=== PATIENT | male | born 2000 | race Two or more races ===

== ENCOUNTER 2023-01-03 19:24 | Inpatient (IN) ==
--- NOTE | 2023-01-03 19:35 | Emergency Department Note ---
Impression & Plan Intentional acetaminophen overdose, Ibuprofen overdose, Suicide attempt by multiple drug overdose ED Provider Note NAME: SEAN WASHINGTON AGE: 22 SEX: M : 2000 ARRIVES VIA: Walk-In INFORMANT: Patient, ED PROVIDER(S): Ignacio Herrera MD CHIEF COMPLAINT: Intentional Tylenol overdose MEDICAL DECISION MAKING: Patient presents due to concern for possible ingestion of Tylenol. IV was established blood work was obtained along with congestion UDS. Did speak with poison [facility] and spoke with Jeannine. After further discussion she is agreeable to starting Acetadote empirically given the patient's reported amount of Tylenol ingested. The patient's blood counts show normal white count H&H and platelet count with normal kidney function. The patient's LFTs and coags are unremarkable. Tylenol level 17 with negative salicylate and alcohol. UDS negative. I did reach back out to poison control who recommended to continue the Acetadote as the patient did have a toxic level based on postingestion. This was ordered. I also recommended getting a repeat coags and liver function testing at 12 hours into the second maintenance dose. I did speak with the on-call hospital service Dr. Romero and the patient was admitted to the medicine service. Critical Care: I have personally spent 47 minutes of critical care time in direct management of this patient. This includes bedside care, interpretation of diagnostic studies, and testing, discussion with consultants, patient, and family members, and other require inpatient management activities. This 47 minutes is in excess of all separately billable procedures. Prior /Outside records reviewed: None Differential diagnosis: Overdose, toxicologic, infection, hypoglycemia, electrolyte abnormalities, cardiac sources, intracerebral event, neurologic, trauma, as well as other pathologies. Diagnostics, as interpreted by me: ECG: Sinus rhythm, rate of 89 normal intervals normal axis no ST elevations. No prior EKGs for comparison. Cardiac monitoring: An order was placed for continuous cardiac monitoring. The monitor shows a rate of 77 with sinus rhythm. Patient was placed on pulse oximetry Medical decision rules: None Imaging studies: See below HPI: Patient presents due to concern for possible Tylenol ingestion overdose. The patient states around 430 this morning he took approximately 40 to 5300 mg Tylenol tablets in addition to ten 200 mg Motrin tablets. Patient states that he did vomit around 7. He complains of mild abdominal discomfort. Patient denies any HI or AVH and is unsure as whether or not he took it with the intent to harm himself. Patient denies any prior history of depression or anxiety. T he patient does not take any medications on a regular basis no pertinent past medical or surgical history. Patient denies any alcohol or drug use but does occasionally use tobacco. Patient states that he feels safe at home and is with 3 other roommates. 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 Patient states he has had increased sleep and decreased appetite. PAST MEDICAL HISTORY: See Below PAST SURGICAL HISTORY: See Below SOCIAL HISTORY: See Below HOME MEDICATIONS: See Below ALLERGIES: See Below VITALS: See Below PHYSICAL EXAMINATION: GENERAL: NAD, non-toxic. EYE EXAM: Normal conjunctiva. PERRL, no anisocoria and EOM's grossly intact w/o pain. NECK: Supple, no nuchal rigidity, no adenopathy, non-tender. No signs of meningismus. FROM of the neck with good chin to chest and neck extension. No stridor. LUNGS: Clear to auscultation. Normal chest wall mechanics. HEART: NSR, no MRG. ABDOMEN: Abdomen soft, non-tender, no masses, no rebound or guarding. BACK: No CVA TTP. SKIN: No rashes and no bruising. UPPER EXTREMITIES: Upper extremities are grossly normal. LOWER EXTREMITIES: Grossly normal, no edema. NEURO EXAM: A&O x3, cranial nerves II-XII grossly intact, normal speech, moves all 4 extremities. Psych: Questionable SI, negative HI or AVH. Depressed mood Past Med/Surg History Medical History No pertinent past medical history Surgical History No pertinent past surgical history Social History Smoking Status: Current some day smoker Cigarettes Per Day: smokes occasionaly; Second Hand Exposure: No; Do You Dip or Chew Tobacco: No; Hx Alcohol Use: No Hx Substance Use: No Preferred Language: Yakut Communication Ability: Effective Design Assembler Required: No Beliefs That Will Affect Care: None Current Living Situation: Alone Current Living Situation Comment: student housing current occupational status: student Feels Safe at Home: Yes Assistive Devices: None Allergies Allergies Allergy/AdvReac Type Severity Reaction Status Date / Time No Known Drug Allergies Allergy Unknown Verified 01/03/23 21:28 Home Meds Home Medications Medication Instructions Recorded Confirmed No Known Home Medications 01/03/23 01/03/23 Results & Data (ED) Vital Signs Vital Signs - 24 hr 01/03/23 19:27 01/03/23 19:58 01/03/23 20:01 Temperature 36.5 C Temperature Source Temporal Artery Scan Pulse Rate 107 H Pulse Rate [Apical] 96 H Respiratory Rate 18 20 Respiratory Effort / Characteristics Non-Labored Spontaneous Non-Labored Spontaneous Respiratory Depth Normal Normal Normal Respiratory Pattern Regular Regular Blood Pressure 132/84 Blood Pressure [Right Arm] 134/85 Blood Pressure Mean 100 Blood Pressure Mean [Right Arm] 101 Pulse Oximetry 97 97 Oxygen Delivery Method Room Air Room Air Sepsis Recent Fever Within 48 Hours No Sepsis New/Unexplained Change in Mental Status N/A Sepsis Action Taken by Nursing No Action Required 01/03/23 19:56 Temperature Temperature Source Pulse Rate 93 H Pulse Rate [Apical] Respiratory Rate Respiratory Effort / Characteristics Respiratory Depth Respiratory Pattern Blood Pressure Blood Pressure [Right Arm] Blood Pressure Mean Blood Pressure Mean [Right Arm] Pulse Oximetry Oxygen Delivery Method Sepsis Recent Fever Within 48 Hours Sepsis New/Unexplained Change in Mental Status Sepsis Action Taken by Long-Term Medications Current Medication List: was personally reviewed by me Laboratory Data Attestation: I reviewed the patient's lab results. 01/04/23 05:42 01/04/23 05:42 Lab Results 01/03/23 01/03/23 01/03/23 Range/Units 19:39 19:39 19:39 WBC 9.15 (4.8-10.8) K/ul RBC 5.66 (4.70-6.10) M/uL Hgb 16.9 (14.0-18.0) g/dl Hct 47.9 (42.0-52.0) % MCV 84.6 (80.0-100.0) fL MCH 29.9 (25.0-34.0) pg MCHC 35.3 (32.0-36.0) g/dL RDW Std Deviation 38.8 (36.4-46.3) fL RDW Coeff of Alexander 12.6 (11.5-14.5) % Plt Count 220 (130-400) K/uL MPV 10.6 (9.4-12.4) fL Immature Gran % (Auto) 0.3 % Neut % (Auto) 65.7 % Lymph % (Auto) 21.6 % Rusk % (Auto) 11.9 % Eos % (Auto) 0.0 % Baso % (Auto) 0.5 % Neut # (Auto) 6.00 (1.40-6.50) K/uL Lymph # (Auto) 1.98 (1.2-3.4) K/uL Rusk # (Auto) 1.09 H (0.11-0.59) K/uL Eos # (Auto) 0.00 (0-0.50) K/uL Baso # (Auto) 0.05 (0-0.2) K/uL Immature Gran # (Auto) 0.03 (0.01-0.20) K/uL PT (9.0-12.0) Seconds INR (0.9-1.1) APTT (21.0-31.0) Seconds PTT Ratio Sodium (136-145) mmol/L Potassium (3.5-5.1) mmol/L Chloride (98-107) mmol/L Carbon Dioxide (21-32) mmol/L Anion Gap (3-11) BUN (6-23) mg/dl Creatinine (0.6-1.4) mg/dl Est Cr Clr Drug Dosing ml/min Est GFR ( Amer) ml/min Est GFR (Non-Af Amer) ml/min BUN/Creatinine Ratio (10-20) Glucose (70-99(Fasting)) mg/dl Calcium (8.6-10.3) mg/dl Total Bilirubin (0.2-1.0) mg/dl AST (13-39) U/L ALT (7-52) U/L Alkaline Phosphatase (34-104) U/L Total Protein (6.0-8.3) gm/dl Albumin (3.4-5.0) gm/dl Globulin (2.5-4.0) gm/dl Albumin/Globulin Ratio (0.9-2) Salicylates < 3.0 L (3.0-30) mg/dl Urine Opiates Screen (Neg) Ur Methadone, Qual (Neg) Acetaminophen 17 (10-30) ug/ml Urine Barbiturates (Neg) Ur Phencyclidine (PCP) (Neg) U Amphetamin/Meth Scrn (Neg) MDMA (Ecstasy) Screen (Neg) U Benzodiazepines Scrn (Neg) Ur Cocaine Metabolite (Neg) U Marijuana (THC) Screen (Neg) Ethyl Alcohol mg/dL < 10.0 (<10.0) mg/dl 01/03/23 01/03/23 01/03/23 Range/Units 19:39 19:58 20:09 WBC (4.8-10.8) K/ul RBC (4.70-6.10) M/uL Hgb (14.0-18.0) g/dl Hct (42.0-52.0) % MCV (80.0-100.0) fL MCH (25.0-34.0) pg MCHC (32.0-36.0) g/dL RDW Std Deviation (36.4-46.3) fL RDW Coeff of Alexander (11.5-14.5) % Plt Count (130-400) K/uL MPV (9.4-12.4) fL Immature Gran % (Auto) % Neut % (Auto) % Lymph % (Auto) % Rusk % (Auto) % Eos % (Auto) % Baso % (Auto) % Neut # (Auto) (1.40-6.50) K/uL Lymph # (Auto) (1.2-3.4) K/uL Rusk # (Auto) (0.11-0.59) K/uL Eos # (Auto) (0-0.50) K/uL Baso # (Auto) (0-0.2) K/uL Immature Gran # (Auto) (0.01-0.20) K/uL PT 11.4 (9.0-12.0) Seconds INR 1.0 (0.9-1.1) APTT 30.7 (21.0-31.0) Seconds PTT Ratio 1.1 Sodium 141 (136-145) mmol/L Potassium 3.6 (3.5-5.1) mmol/L Chloride 107 (98-107) mmol/L Carbon Dioxide 20 L (21-32) mmol/L Anion Gap 14 H (3-11) BUN 12 (6-23) mg/dl Creatinine 1.07 (0.6-1.4) mg/dl Est Cr Clr Drug Dosing 141.2 ml/min Est GFR ( Amer) 112.0 ml/min Est GFR (Non-Af Amer) 96.6 ml/min BUN/Creatinine Ratio 11.2 (10-20) Glucose 71 (70-99(Fasting)) mg/dl Calcium 9.5 (8.6-10.3) mg/dl Total Bilirubin 0.9 (0.2-1.0) mg/dl AST 19 (13-39) U/L ALT 18 (7-52) U/L Alkaline Phosphatase 64 (34-104) U/L Total Protein 8.0 (6.0-8.3) gm/dl Albumin 4.7 (3.4-5.0) gm/dl Globulin 3.3 (2.5-4.0) gm/dl Albumin/Globulin Ratio 1.4 (0.9-2) Salicylates (3.0-30) mg/dl Urine Opiates Screen Neg (Neg) Ur Methadone, Qual Neg (Neg) Acetaminophen (10-30) ug/ml Urine Barbiturates Neg (Neg) Ur Phencyclidine (PCP) Neg (Neg) U Amphetamin/Meth Scrn Neg (Neg) MDMA (Ecstasy) Screen Neg (Neg) U Benzodiazepines Scrn Neg (Neg) Ur Cocaine Metabolite Neg (Neg) U Marijuana (THC) Screen Neg (Neg) Ethyl Alcohol mg/dL (<10.0) mg/dl Administered Medications Acetylcysteine 9,190 mg/ (Dextrose) 1,045.95 mls @ 62.5 mls/hr IV 0430 ONE; Protocol Stop: 01/04/23 21:14 Last Admin: 01/04/23 04:27 Dose: 62.5 mls/hr Documented By: NVE Discontinued Medications Acetylcysteine 14,070 mg/ (Dextrose) 270.35 mls @ 200 mls/hr IV NOW ONE; Protocol Stop: 01/03/23 21:51 Last Infusion: 01/03/23 22:50 Dose: 0 mls/hr Documented By: Admin: 01/03/23 21:24 Dose: 200 mls/hr Documented By: MED Acetylcysteine 4,690 mg/ (Dextrose) 523.45 mls @ 125 mls/hr IV 2300 ONE; Protocol Stop: 01/04/23 03:11 Last Infusion: 01/04/23 03:19 Dose: 0 mls/hr Documented By: Admin: 01/03/23 22:58 Dose: 125 mls/hr Documented By: ELINOR Miscellaneous Information (Patient's Allergy Info Needs Entered) 1 each N/A Q15M [facility] Stop: 02/02/23 20:34 Last Admin: 01/04/23 05:48 Dose: Not Given Documented By: Admin: 01/04/23 05:48 Dose: Not Given Documented By: Admin: 01/04/23 05:48 Dose: Not Given Documented By: Admin: 01/04/23 05:48 Dose: Not Given Documented By: Admin: 01/04/23 05:48 Dose: Not Given Documented By: Admin: 01/04/23 05:47 Dose: Not Given Documented By: Admin: 01/04/23 05:47 Dose: Not Given Documented By: Admin: 01/03/23 23:28 Dose: 1 each Documented By: Admin: 01/03/23 21:27 Dose: 1 each Documented By: MED Ondansetron HCl (Ondansetron Inj 2 Mg/Ml 2 Ml Vial) 4 mg IV NOW STA Stop: 01/03/23 23:02 Last Admin: 01/03/23 23:19 Dose: 4 mg Documented By: ELINOR Discharge Plan Visit Data Chief Complaint: Overdose (Intentional) Stated Complaint: INTENTION OVERDOSE ACETAMINOPHEN ED Provider: Ignacio Herrera Discharge Problem: Intentional acetaminophen overdose, Ibuprofen overdose, Suicide attempt by multiple drug overdose Patient Disposition: Admitted As Inpatient Discharge Instructions Interventions: ED Discharge Assessment Last Done: 01/04/23 01:29
[2023-01-03] MEDS ORDERED: DEXTROSE 5% IV ONE ×4 (19:56→23:00)
[2023-01-03] MEDS ORDERED: ACETYLCYSTEINE IV ONE ×4 (19:56→23:00)
[2023-01-03 20:28] LABS: Acetaminophen 17 ug/ml (10-30); Salicylate < 3.0 mg/dl (3.0-30)
[2023-01-03 20:32] LABS: Albumin Globulin Ratio 1.4 (0.9-2); Albumin Level 4.7 gm/dl (3.4-5.0); BUN Creatinine Ratio 11.2 (10-20); Bilirubin,Total 0.9 mg/dl (0.2-1.0); Calcium 9.5 mg/dl (8.6-10.3); Creatinine Clr Calc Pharmacy 141.2 ml/min; Est GFR (Non-African American) 96.6 ml/min; Globulin 3.3 gm/dl (2.5-4.0); Potassium 3.6 mmol/L (3.5-5.1)
[2023-01-03 20:38] LABS: Basophils # (auto) 0.05 K/uL (0-0.2); Basophils % (auto) 0.5 %; Hematocrit (blood only) 47.9 % (42.0-52.0); Hemoglobin 16.9 g/dl (14.0-18.0); Immature Granulocytes # (auto) 0.03 K/uL (0.01-0.20); Immature Granulocytes % (auto) 0.3 %; Lymphocytes # (auto) 1.98 K/uL (1.2-3.4); Lymphocytes % (auto) 21.6 %; Mean Corpuscular Hemoglobin 29.9 pg (25.0-34.0); Mean Corpuscular Hgb Conc 35.3 g/dL (32.0-36.0); Mean Corpuscular Volume 84.6 fL (80.0-100.0); Mean Platelet Volume 10.6 fL (9.4-12.4); Monocytes # (auto) 1.09 K/uL (0.11-0.59); Monocytes % (auto) 11.9 %; Neutrophils % (auto) 65.7 %; Platelet Count 220 K/uL (130-400); RDW Coefficient of Variation 12.6 % (11.5-14.5); RDW Standard Deviation 38.8 fL (36.4-46.3); Red Blood Count 5.66 M/uL (4.70-6.10); White Blood Count 9.15 K/ul (4.8-10.8)
[2023-01-03 20:52] LABS: Amphetamines+Metham, Urine Neg (Neg); Barbiturates, Urine Neg (Neg); Benzodiazepine, Urine Neg (Neg); Cocaine, Urine Neg (Neg); MDMA (Ecstacy), Urine Neg (Neg); Methadone, Urine Neg (Neg); Opiate, Urine Neg (Neg); Phencyclidine, Urine Neg (Neg)
[2023-01-03 21:01] LABS: Partial Thromboplastin Ratio 1.1; Partial Thromboplastin Time 30.7 Seconds (21.0-31.0); Prothrombin Time 11.4 Seconds (9.0-12.0)
[2023-01-03] MEDS: Patient's ALLERGY Info needs ENTERED SCH ×2 (21:27→23:28)
[2023-01-03] MEDS ORDERED: ONDANSETRON INJ 2 MG/ML 2 ML VIAL IV STA (23:01)
--- NOTE | 2023-01-04 01:24 | History & Physical Report ---
Date of Service January 04, 2023 The patient was seen and examined on 01/03/2023 Assessment & Plan (1) Intentional acetaminophen overdose: (2) Ibuprofen overdose: Plan Intentional acetaminophen and ibuprofen overdose- Patient will be admitted to the telemetry unit Continue acetylcysteine per protocol begun in the ED Consult psychiatry Suicide precautions One-on-one observation Repeat CBC with differential, chemistry profile, acetaminophen, PT/INR/PTT levels in a.m. History of Present Illness Chief Complaint: The patient presents to the emergency department due to an intentional over ingestion of Tylenol at 4:30 AM, reported that he took approximately 40-50 of 300 mg Tylenol tablets in addition to ten 200 mg Motrin tablets. He reports that he vomited around 7 AM, and had some mild abdominal discomfort since that time. 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 The emergency department has contacted poison control, who recommends that the patient be admitted and placed on acetylcysteine prophylaxis per protocol Allergies Allergy/AdvReac Type Severity Reaction Status Date / Time No Known Drug Allergies Allergy Unknown Verified 01/03/23 21:28 Home Medications Medication Instructions Recorded Confirmed Type No Known Home Medications 01/03/23 01/03/23 History Past Med/Surg History Medical History No pertinent past medical history Surgical History No pertinent past surgical history Social History Smoking Status: Current some day smoker Hx Alcohol Use: No Hx Substance Use: No Preferred Language: Andorran current occupational status: student Feels Safe at Home: Yes Review of Systems Review of Systems: The patient denies chest pain, palpitations, shortness of breath, dyspnea on exertion, cough, lower extremity swelling, sore throat, fevers, chills, sweats, diarrhea , constipation, blood in urine or stool, dysuria, urinary frequency or urgency, lightheadedness, dizziness, headache, memory loss, loss of consciousness, rash, abnormal bruising or bleeding, imbalance, focal or generalized weakness, numbness or tingling in arms or legs, generalized arthralgias or myalgias, back or neck pain, or night sweats. The review of systems is otherwise negative other than for that already noted above, and at least 10 systems have been reviewed. Physical Exam Physical Exam: The patient is awake, alert and oriented 3, well developed and well nourished, normocephalic and atraumatic, lying in bed and in no acute distress. HEENT--PERRL, EOMI, mucous membranes and oropharynx normal Neck--supple. No JVD. No bruits. Thyroid normal, trachea midline, no adenopathy. Heart--normal S1 and S2. No murmurs, rubs or gallops. Lungs--clear bilaterally, no respiratory distress, no accessory muscle use. Abdomen--normal bowel sounds and soft. Nontender. Nondistended, no hernias or masses, no organomegaly. Extremities--no cyanosis or clubbing. No edema. There are good distal pulses b/l. Dermatologic--normal skin turgor, normal color, no abnormal lymph nodes, no rash. Neurologic--cranial nerves II through XII grossly intact. Rheumatologic--normal range of motion. Psychiatric--normal affect. Results & Data Results & Data Vital Signs (Past 12 Hours) Vital Signs Temp Pulse Pulse Resp BP BP Pulse Ox 01/04/23 00:00 84 01/04/23 01:01 69 18 122/86 98 01/04/23 00:01 83 18 142/90 H 97 01/03/23 23:07 89 18 140/91 97 01/03/23 23:07 98 01/03/23 19:56 93 H 01/03/23 19:58 96 H 20 134/85 97 01/03/23 19:27 36.5 C 107 H 18 132/84 97 O2 Del Method 01/04/23 00:00 01/04/23 01:01 Room Air 01/04/23 00:01 Room Air 01/03/23 23:07 Room Air 01/03/23 23:07 Room Air 01/03/23 19:56 01/03/23 19:58 Room Air 01/03/23 19:27 Room Air Laboratory Results Laboratory Results WBC 9.15 K/ul (4.8-10.8) 01/03/23 19:39 RBC 5.66 M/uL (4.70-6.10) 01/03/23 19:39 Hgb 16.9 g/dl (14.0-18.0) 01/03/23 19:39 Hct 47.9 % (42.0-52.0) 01/03/23 19:39 MCV 84.6 fL (80.0-100.0) 01/03/23 19:39 MCH 29.9 pg (25.0-34.0) 01/03/23 19:39 MCHC 35.3 g/dL (32.0-36.0) 01/03/23 19:39 RDW Std Deviation 38.8 fL (36.4-46.3) 01/03/23 19:39 RDW Coeff of Alexander 12.6 % (11.5-14.5) 01/03/23 19:39 Plt Count 220 K/uL (130-400) 01/03/23 19:39 MPV 10.6 fL (9.4-12.4) 01/03/23 19:39 Immature Gran % (Auto) 0.3 % 01/03/23 19:39 Neut % (Auto) 65.7 % 01/03/23 19:39 Lymph % (Auto) 21.6 % 01/03/23 19:39 Jay % (Auto) 11.9 % 01/03/23 19:39 Eos % (Auto) 0.0 % 01/03/23 19:39 Baso % (Auto) 0.5 % 01/03/23:39 Neut # (Auto) 6.00 K/uL (1.40-6.50) 01/03/23 19:39 Lymph # (Auto) 1.98 K/uL (1.2-3.4) 01/03/23 19:39 Jay # (Auto) 1.09 K/uL (0.11-0.59) H 01/03/23 19:39 Eos # (Auto) 0.00 K/uL (0-0.50) 01/03/23 19:39 Baso # (Auto) 0.05 K/uL (0-0.2) 01/03/23 19:39 Immature Gran # (Auto) 0.03 K/uL (0.01-0.20) 01/03/23 19:39 PT 11.4 Seconds (9.0-12.0) 01/03/23 20:09 INR 1.0 (0.9-1.1) 01/03/23 20:09 APTT 30.7 Seconds (21.0-31.0) 01/03/23 20:09 PTT Ratio 1.1 01/03/23 20:09 Sodium 141 mmol/L (136-145) 01/03/23 19:39 Potassium 3.6 mmol/L (3.5-5.1) 01/03/23 19:39 Chloride 107 mmol/L (98-107) 01/03/23 19:39 Carbon Dioxide 20 mmol/L (21-32) L 01/03/23 19:39 Anion Gap 14 (3-11) H 01/03/23 19:39 BUN 12 mg/dl (6-23) 01/03/23 19:39 Creatinine 1.07 mg/dl (0.6-1.4) 01/03/23 19:39 Est Cr Clr Drug Dosing 141.2 ml/min 01/03/23 19:39 Est GFR ( Amer) 112.0 ml/min 01/03/23 19:39 Est GFR (Non-Af Amer) 96.6 ml/min 01/03/23 19:39 BUN/Creatinine Ratio 11.2 (10-20) 01/03/23 19:39 Glucose 71 mg/dl (70-99(Fasting)) 01/03/23 19:39 Calcium 9.5 mg/dl (8.6-10.3) 01/03/23 19:39 Total Bilirubin 0.9 mg/dl (0.2-1.0) 01/03/23 19:39 AST 19 U/L (13-39) 01/03/23 19:39 ALT 18 U/L (7-52) 01/03/23 19:39 Alkaline Phosphatase 64 U/L (34-104) 01/03/23 19:39 Total Protein 8.0 gm/dl (6.0-8.3) 01/03/23 19:39 Albumin 4.7 gm/dl (3.4-5.0) 01/03/23 19:39 Globulin 3.3 gm/dl (2.5-4.0) 01/03/23 19:39 Albumin/Globulin Ratio 1.4 (0.9-2) 01/03/23 19:39 Salicylates < 3.0 mg/dl (3.0-30) L 01/03/23 19:39 Urine Opiates Screen Neg (Neg) 01/03/23 19:58 Ur Methadone, Qual Neg (Neg) 01/03/23 19:58 Acetaminophen 17 ug/ml (10-30) 01/03/23 19:39 Urine Barbiturates Neg (Neg) 01/03/23 19:58 Ur Phencyclidine (PCP) Neg (Neg) 01/03/23 19:58 U Amphetamin/Meth Scrn Neg (Neg) 01/03/23 19:58 MDMA (Ecstasy) Screen Neg (Neg) 01/03/23 19:58 U Benzodiazepines Scrn Neg (Neg) 01/03/23 19:58 Ur Cocaine Metabolite Neg (Neg) 01/03/23 19:58 U Marijuana (THC) Screen Neg (Neg) 01/03/23 19:58 Ethyl Alcohol mg/dL < 10.0 mg/dl (<10.0) 01/03/23 19:39 SARS-CoV-2, RNA, NAAT NEGATIVE (NEGATIVE) 01/03/23 Unknown Code Status & VTE Plan Code Status Full code VTE Prophylaxis Plan VTE Prophylaxis will be ordered: Yes PG Care Time/CCT Total # of Minutes Spent Total Time Spent with Patient: Total time spent is greater than 50% in coordination of care (as documented) at patient's floor/unit and/or counseling patient: Coding Level of Care Code 63999 INT INP/OBS CARE 2/55MIN Diagnoses Intentional acetaminophen overdose T39.1X2A Ibuprofen overdose T39.311A
[2023-01-04] MEDS ORDERED: ONDANSETRON INJ 2 MG/ML 2 ML VIAL IV PRN (01:50)
[2023-01-04] MEDS ORDERED: DEXTROSE 5% IV ONE (04:30)
[2023-01-04] MEDS ORDERED: ACETYLCYSTEINE IV ONE (04:30)
[2023-01-04] MEDS: Patient's ALLERGY Info needs ENTERED SCH ×2 (05:47→05:48)
[2023-01-04 06:25] LABS: Basophils # (auto) 0.04 K/uL (0-0.2); Basophils % (auto) 0.5 %; Hemoglobin 16.1 g/dl (14.0-18.0); Immature Granulocytes # (auto) 0.03 K/uL (0.01-0.20); Immature Granulocytes % (auto) 0.4 %; Lymphocytes # (auto) 1.43 K/uL (1.2-3.4); Mean Corpuscular Hemoglobin 29.8 pg (25.0-34.0); Mean Platelet Volume 10.4 fL (9.4-12.4); Monocytes # (auto) 1.09 K/uL (0.11-0.59); Monocytes % (auto) 13.7 %; Neutrophils # (auto) 5.37 K/uL (1.40-6.50); Neutrophils % (auto) 67.4 %; Platelet Count 214 K/uL (130-400); RDW Coefficient of Variation 12.7 % (11.5-14.5); RDW Standard Deviation 38.7 fL (36.4-46.3); Red Blood Count 5.41 M/uL (4.70-6.10); White Blood Count 7.96 K/ul (4.8-10.8)
[2023-01-04 06:49] LABS: Albumin Globulin Ratio 1.6 (0.9-2); Albumin Level 4.3 gm/dl (3.4-5.0); BUN Creatinine Ratio 12.1 (10-20); Bilirubin,Total 0.8 mg/dl (0.2-1.0); Creatinine Clr Calc Pharmacy 153.7 ml/min; Est GFR (African American) 136.2 ml/min; Est GFR (Non-African American) 117.5 ml/min; Globulin 2.7 gm/dl (2.5-4.0); Potassium 3.6 mmol/L (3.5-5.1)
[2023-01-04 07:07] LABS: INR 1.1 (0.9-1.1); Partial Thromboplastin Ratio 1.1; Partial Thromboplastin Time 30.7 Seconds (21.0-31.0); Prothrombin Time 11.9 Seconds (9.0-12.0)
--- NOTE | 2023-01-04 07:17 | Hospitalist Progress Note ---
Date of Service January 04, 2023 Assessment & Plan (1) Intentional acetaminophen overdose: Plan: 22yo male without significant PMH presents after an intentional overdose of APAP and ibuprofen. Intentional overdose, suicide attempt - Patient presents after intentional ingestion of APAP (estimates fifty 300mg tablets) and ibuprofen (estimates ten 200mg tablets) - Patient vomited about 2-3 hours after ingestion; has had mild abdominal pain since - EKG: sinus rhythm with PACs, no overt ischemic change - Admit to telemetry - NAC protocol started in ED and continued on the floor - Psychiatry consulted - Suicide precautions - 1:1 observation, safe tray diet - Trend CBC, CMP, serum APAP level, PT/PTT/INR FEN: safe tray diet, NAC@62.5mL/hr Code status: full code DVT ppx: SCDs Consults: psychiatry PT/OT: not indicated Dispo: med/telemetry (2) Ibuprofen overdose: Admission and Anticipated Discharge Date Admission Date: January 03, 2023 Supervising Physician Co-Signing Physician Notes I personally examined the patient and verified all gerardo points of history and exam, discussed case, and agree with decision making with Dr Doll Feeling okay. No physical complaints beyond some diffuse abdominal pain. Vitals noted, in general he is awake and alert pleasant no distress. HEENT normocephalic atraumatic mucous membranes moist. Abdomen is soft may be mildly distended at worst, no focal tenderness and his pain is not really reproducible. No focal neurodeficits. Skin without rashes pallor or icterus. CBC, CMP and acetaminophen levels are reviewed Suicide attempt/intentional Tylenol overdoseon N-acetylcysteine, fortunately no transaminitis yetand somewhere between his vomiting and his promptly seeking care, I suspect he is going to do okay. Continue N-acetylcysteine for now, follow-up LFTs and INR in a.m. Acid suppression given some of his stomach discomfort is probably a degree of NSAID induced gastritis. Inpatient psych. Offered counseling and support. otherwise as above Subjective Patient seen and evaluated at bedside this morning. Patient feels well this morning, complaining of mild generalized abdominal pain. Denies current nausea, vomiting, CP, SOB, and diarrhea. Patient reports that his overdose yesterday was a suicide attempt but says it was not something he had planned prior to yesterday. Patient is reluctant to discuss his reason for attempting suicide. Review of Systems Review of Systems: See HPI Physical Exam Physical Exam: Constitutional: well-appearing, no acute distress CV: regular rate, extremities well-perfused Resp: breathing non-labored, CTABL Neuro: alert, oriented, no focal neurologic deficit appreciated Appearance: well-groomed, wearing paper gown Behavior: calm, cooperative, eye contact good Mood: "okay" Affect: pleasant, affect congruent with mood Speech: appropriate rate/quantity/volume Thought process: linear, coherent Thought content: appropriate to topic of discussion, denies HI Cognition: alert, focused, short- and long-term memory grossly intact, abstraction intact Results & Data Results & Data Vital Signs (Past 12 Hours) Vital Signs Temp Pulse Pulse Resp BP BP Pulse Ox 01/04/23 03:00 86 01/04/23 01:56 112 H 145/92 H 98 01/04/23 01:29 81 16 98 01/04/23 00:00 84 01/04/23 01:01 69 18 122/86 98 01/04/23 00:01 83 18 142/90 H 97 01/03/23 23:07 89 18 140/91 97 01/03/23 23:07 98 01/03/23 19:56 93 H 01/03/23 19:58 96 H 20 134/85 97 01/03/23 19:27 36.5 C 107 H 18 132/84 97 O2 Del Method 01/04/23 03:00 01/04/23 01:56 Room Air 01/04/23 01:29 Room Air 01/04/23 00:00 01/04/23 01:01 Room Air 01/04/23 00:01 Room Air 01/03/23 23:07 Room Air 01/03/23 23:07 Room Air 01/03/23 19:56 01/03/23 19:58 Room Air 01/03/23 19:27 Room Air Resident Activity Tracking Resident Involvement: Resident Care Provided Care Provided: Adult Hospital Medicine
--- NOTE | 2023-01-04 13:49 | Psychiatric Consultation ---
Date of Consultation January 04, 2023 Impression / Recommendations Impression 22 yo man admitted medically following an intentional overdose suicide attempt. Diagnostically consistent with MDD in the context of recent stressors including academic difficulties, questioning what his future will look like. Acute risk of self-harm remains elevated and high given suicide attempt requiring medical admission, major depressive symptoms, hopelessness, lack of outpatient services, limited insight, high psychic distress. Given elevated risk of harm to self they meet criteria for inpatient psychiatric care for diagnostic clarification, safety/stabilization, development of additional coping skills, medication management and disposition/safety planning once medically stable. If they do not agree to voluntary treatment at that time they will meet criteria for 302 status based on severity of suicide attempt and ongoing modifiable risk factors. (1) Intentional acetaminophen overdose: Encounter type: initial encounter Qualified Code(s): T39.1X2A - Poisoning by 4-Aminophenol derivatives, intentional self-harm, initial encounter (2) Ibuprofen overdose: Encounter type: initial encounter Injury intent: intentional self-harm Qualified Code(s): T39.312A - Poisoning by propionic acid derivatives, intentional self-harm, initial encounter (3) Major depressive disorder with current active episode: Plan -Continue 1-on-1 for risk of harm to self -Do not discharge or allow to leave AMA, call psych liason as would likely meet 302 warrant criteria (and 302 petition on chart) -Once medically cleared plan for psychiatric hospitalization (either 201 or 302 status). 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 Psychiatry consulted for risk assessment and recommendations. Chief Complaint "I didn't see any future for myself". History of Present Illness Chen was admitted medically following suicide attempt via ingestion of ac etaminophen and ibuprofen. 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 He has been questioning his future due to the academic challenges and not liking his academic work and this lead to him feeling disappointed and "I didn't want to continue but I also don't want to start all over again". He then was given a plagiarism notice for a recent project and notes this was like "the final nail in the coffin" and he decided to attempt suicide. He states he was not an impulsive attempt and that "I was thinking logically". He remains unsure about how he feels about being alive. No history of psychiatric treatment, past psychiatric medications, hospitalizations or prior suicide attempts. Has good local support from his girlfriend and other friends and has been talking with his older sister who lives in [place]. The rest of his family lives in [place]. Allergies Allergy/AdvReac Type Severity Reaction Status Date / Time No Known Drug Allergies Allergy Unknown Verified 01/03/23 21:28 Home Medications Medication Instructions Recorded Confirmed Type No Known Home Medications 01/03/23 01/03/23 History Patient History Medical History No pertinent past medical history Surgical History No pertinent past surgical history Social History Smoking Status: Current some day smoker Cigarettes Per Day: smokes occasionaly; Second Hand Exposure: No; Do You Dip or Chew Tobacco: No; Hx Alcohol Use: No Hx Substance Use: No Preferred Language: Ukrainian Communication Ability: Effective Linoleum Mechanic Required: No Beliefs That Will Affect Care: None Current Living Situation: Alone Current Living Situation Comment: student housing current occupational status: student Feels Safe at Home: Yes Assistive Devices: None Physical Exam Psychiatric: Orientation: alert and oriented x 3 Apperance: appropriately dressed and appropriately groomed Eye Contact: good eye contact Motor Behavior: no abnormal motor movements Speech: normal rate/rhythm/volume of speech Affect: + depressed affect Mood: + depressed mood Thought Process: goal directed thought process Thought Content: reality based without delusions Suicidal Thoughts: + reports suicidal thoughts (remains ambivalent about surviving attempt) Homicidal Thoughts: denies homicidal thoughts Hallucinations: no auditory hallucinations and no visual hallucinations Cognition: attention grossly intact and language grossly intact Estimated Intelligence: consistent with education level Insight: + limited insight Judgment: + limited judgement Vital Signs (Past 24 Hours): Last Vital Signs Temp 36.8 C 01/04/23 11:25 Pulse 75 01/04/23 11:25 Resp 18 01/04/23 11:25 BP 146/78 H 01/04/23 11:25 Pulse Ox 98 01/04/23 11:25 O2 Del Method Room Air 01/04/23 11:25 Review of Systems All systems reviewed & are unremarkable except as noted in HPI & below (stomach pain) Results & Data (PSY) Medications Administered Acetylcysteine 9,190 mg/ (Dextrose) 1,045.95 mls @ 62.5 mls/hr IV 0430 ONE; Protocol Stop: 01/04/23 21:14 Last Admin: 01/04/23 04:27 Dose: 62.5 mls/hr Documented By: KIM Coding Level of Care Code 41747 IN/OBS CONSULT LVL 3,45M Diagnoses Intentional acetaminophen overdose T39.1X2A Encounter type: initial encounter Ibuprofen overdose T39.312A Encounter type: initial encounter Injury intent: intentional self-harm Major depressive disorder with current active episode F32.9 Time Spent (min) 50
[2023-01-04] MEDS: FAMOTIDINE 20 MG TAB PO SCH (16:19)
[2023-01-04] MEDS: SUCRALFATE 1 GM/10 ML UDC PO SCH ×3 (16:19→21:43)
[2023-01-04 17:29] LABS: Basophils # (auto) 0.04 K/uL (0-0.2); Basophils % (auto) 0.5 %; Hematocrit (blood only) 47.6 % (42.0-52.0); Hemoglobin 16.6 g/dl (14.0-18.0); Immature Granulocytes # (auto) 0.02 K/uL (0.01-0.20); Immature Granulocytes % (auto) 0.3 %; Lymphocytes # (auto) 2.22 K/uL (1.2-3.4); Mean Corpuscular Hemoglobin 29.7 pg (25.0-34.0); Mean Corpuscular Hgb Conc 34.9 g/dL (32.0-36.0); Mean Corpuscular Volume 85.2 fL (80.0-100.0); Mean Platelet Volume 11.1 fL (9.4-12.4); Monocytes # (auto) 0.79 K/uL (0.11-0.59); Monocytes % (auto) 10.7 %; Neutrophils # (auto) 4.34 K/uL (1.40-6.50); Neutrophils % (auto) 58.5 %; Platelet Count 199 K/uL (130-400); RDW Coefficient of Variation 12.8 % (11.5-14.5); RDW Standard Deviation 39.5 fL (36.4-46.3); Red Blood Count 5.59 M/uL (4.70-6.10); White Blood Count 7.41 K/ul (4.8-10.8)
[2023-01-04 17:35] LABS: Albumin Globulin Ratio 1.5 (0.9-2); Albumin Level 4.4 gm/dl (3.4-5.0); BUN Creatinine Ratio 10.3 (10-20); Bilirubin,Total 0.7 mg/dl (0.2-1.0); Calcium 9.2 mg/dl (8.6-10.3); Creatinine Clr Calc Pharmacy 160.7 ml/min; Est GFR (Non-African American) 120.8 ml/min; Globulin 2.9 gm/dl (2.5-4.0); Potassium 4.1 mmol/L (3.5-5.1); Total Protein 7.3 gm/dl (6.0-8.3)
[2023-01-04 17:52] LABS: INR 1.1 (0.9-1.1); Partial Thromboplastin Ratio 1.1; Prothrombin Time 11.7 Seconds (9.0-12.0)
[2023-01-05 08:08] LABS: Hemoglobin 16.1 g/dl (14.0-18.0); Mean Corpuscular Hemoglobin 29.7 pg (25.0-34.0); Mean Corpuscular Volume 84.7 fL (80.0-100.0); Mean Platelet Volume 10.5 fL (9.4-12.4); Platelet Count 196 K/uL (130-400); RDW Standard Deviation 40.3 fL (36.4-46.3); Red Blood Count 5.43 M/uL (4.70-6.10); White Blood Count 6.56 K/ul (4.8-10.8)
[2023-01-05 08:31] LABS: Alanine Aminotransferase 14 U/L (7-52); Albumin Globulin Ratio 1.6 (0.9-2); Albumin Level 4.1 gm/dl (3.4-5.0); Alkaline Phosphatase 54 U/L (34-104); Anion Gap 6 (3-11); Aspartate Aminotransferase 13 U/L (13-39); BUN Creatinine Ratio 12.3 (10-20); Bilirubin,Total 0.6 mg/dl (0.2-1.0); Blood Urea Nitrogen 9 mg/dl (6-23); Calcium 8.9 mg/dl (8.6-10.3); Carbon Dioxide 29 mmol/L (21-32); Chloride 104 mmol/L (98-107); Creatinine Clr Calc Pharmacy 191.6 ml/min; Est GFR (African American) > 150.0 ml/min; Est GFR (Non-African American) 129.8 ml/min; Globulin 2.6 gm/dl (2.5-4.0); Glucose 90 mg/dl (70-99(Fasting)); Potassium 3.5 mmol/L (3.5-5.1); Sodium 139 mmol/L (136-145); Total Protein 6.7 gm/dl (6.0-8.3)
[2023-01-05 08:34] LABS: Prothrombin Time 10.9 Seconds (9.0-12.0)
[2023-01-05] MEDS: FAMOTIDINE 20 MG TAB PO SCH (08:54)
[2023-01-05] MEDS: SUCRALFATE 1 GM/10 ML UDC PO SCH (08:54)
--- NOTE | 2023-01-05 08:58 | Discharge Summary ---
Date of Service January 05, 2023 Admission HPI Per Admitting Provider The patient is a 22-year-old male with no significant past medical history who presents to the emergency department with concerns regarding Tylenol overdose. The emergency department has contacted poison control, who recommends that the patient be admitted and placed on acetylcysteine prophylaxis per protocol Admission Exam Per Admitting Provider The patient is awake, alert and oriented 3, well developed and well nourished, normocephalic and atraumatic, lying in bed and in no acute distress. HEENT--PERRL, EOMI, mucous membranes and oropharynx normal Neck--supple. No JVD. No bruits. Thyroid normal, trachea midline, no adenopathy. Heart--normal S1 and S2. No murmurs, rubs or gallops. Lungs--clear bilaterally, no respiratory distress, no accessory muscle use. Abdomen--normal bowel sounds and soft. Nontender. Nondistended, no hernias or masses, no organomegaly. Extremities--no cyanosis or clubbing. No edema. There are good distal pulses b/l. Dermatologic--normal skin turgor, normal color, no abnormal lymph nodes, no rash. Neurologic--cranial nerves II through XII grossly intact. Rheumatologic--normal range of motion. Psychiatric--normal affect. Principal Diagnosis Intentional acetaminophen/ibuprofen overdose Discharge Exam Constitutional: well-appearing, no acute distress CV: regular rate, extremities well-perfused Resp: breathing non-labored, CTABL Abd: soft, nontender, nondistended, no guarding or rebound, no hepatosplenomegaly Neuro: alert, oriented, no focal neurologic deficit appreciated Appearance: well-groomed, wearing paper gown Behavior: calm, cooperative, eye contact good Mood: "fine" Affect: pleasant, affect congruent with mood Speech: appropriate rate/quantity/volume Thought process: linear, coherent Thought content: appropriate to topic of discussion, denies SI/HI Cognition: alert, focused, short- and long-term memory grossly intact, abstraction intact Discharge Data Allergies Allergy/AdvReac Type Severity Reaction Status Date / Time No Known Drug Allergies Allergy Unknown Verified 01/03/23 21:28 Consultations 01/03/23 21:08 ED Decision to Admit Stat 01/04/23 01:50 Consult Psychiatry Routine 01/04/23 02:04 Consult Behavioral Health Liaison Routine Hospital Course (1) Intentional acetaminophen overdose: 22yo male without significant PMH presents after an intentional overdose of APAP and ibuprofen. Intentional acetaminophen/ibuprofen overdose- suicide attempt - Patient presents after intentional ingestion of APAP (estimates fifty 300mg tablets) and ibuprofen (estimates ten 200mg tablets) - Patient vomited about 2-3 hours after ingestion; has had mild abdominal pain since - EKG on admission: sinus rhythm with PACs, no overt ischemic change - NAC treatment completed 01/04 + CBC, CMP, PT/INR normalized as of 01/05 - Psychiatry consulted - Suicide precautions - 1:1 observation, safe tray diet -No behavioral issues during stay on medical floor - Pt medically stable for discharge to inpatient psychiatric unit at this time FEN: safe tray diet Code status: full code DVT ppx: SCDs Consults: psychiatry Dispo: D/c to inpatient psychiatric unit (2) Ibuprofen overdose: Total Time Total Time Spent Total Time Spent (In Minutes): 30 Discharge Plan Discharge Items Patient Disposition: Home - Self-Care Reason For Visit: INTENTION OVERDOSE ACETAMINOPHEN Discharge Diagnosis: Intentional overdose Activity: Per Instructions section Non-emergency contact: Primary Care Provider and Psychiatrist Call non-emergency contact if: your symptoms worsen Follow-up/Referrals: [facility] [Primary Care Provider] - Diet: Regular Addtl Attending Provider Instructions: Intentional acetaminophen/ibuprofen overdose- suicide attempt - Patient presents after intentional ingestion of APAP (estimates fifty 300mg tablets) and ibuprofen (estimates ten 200mg tablets) - Patient vomited about 2-3 hours after ingestion; has had mild abdominal pain since - EKG on admission: sinus rhythm with PACs, no overt ischemic change - NAC treatment completed 01/04 + CBC, CMP, PT/INR normalized as of 01/05 - Psychiatry consulted, recommendations appreciated - Suicide precautions - 1:1 observation, safe tray diet -No behavioral issues during stay on medical floor - Pt medically stable for discharge to inpatient psychiatric unit at this time FEN: safe tray diet Code status: full code DVT ppx: SCDs Consults: psychiatry Dispo: D/c to inpatient psychiatric unit Pending Studies at Discharge: No Stand-Alone Forms: My [facility] Medications and DC Order Prescriptions: Continued No Known Home Medications Discharge Orders: Discharge Order (Routine); Ordered 01/05/23 Ordered By: Adrienne Robertson Admission Data Admit Date/Time: 01/03/23 22:22 Attending Provider: Jeane Torres Admit Provider: Joey Swenson Primary Care Provider: [facility] Other Providers: Joey Swenson ; Joseline Lan ; Shilpi Vasquez ; Alonzo Williamson ; Micah Turner Other Interventions: Discharge Summary Assessment (RN) Last Done: 01/05/23 10:28 Supervising Physician Co-Signing Physician Notes Resident Physician Supervision Note: I independently interviewed and examined the patient and verified the gerardo history and physical, reviewed labs and image studies and agree with resident findings and care plan. Resident Activity Tracking Resident Involvement: Resident Care Provided Care Provided: Adult Hospital Medicine
--- NOTE | 2023-01-05 12:27 | Electrocardiogram Report ---
Test Reason : Blood Pressure : / mmHG Vent. Rate : 089 BPM Atrial Rate : 089 BPM P-R Int : 134 ms QRS Dur : 102 ms QT Int : 352 ms P-R-T Axes : 075 064 041 degrees QTc Int : 428 ms Sinus rhythm with Premature atrial complexes Possible Left atrial enlargement Borderline ECG No previous ECGs available Confirmed by Jose Nelson ([id number]) on 01/05/2023 12:27:10 PM Referred By: REFERRED SELF Confirmed By:Jose Nelson
== END 2023-01-05 12:03 | disposition home or self-care (01) | DRG 918 ==
LOC: ED 19:24 → 2N 22:22 → SUATTDRO 22:22 → 2N 01-04 01:29

== ENCOUNTER 2023-01-05 10:54 | Inpatient (IN) ==
[2023-01-05] MEDS ORDERED: BISMUTH SUBSALICYLATE LIQD 236 ML PO PRN (10:56)
[2023-01-05] MEDS ORDERED: ACETAMINOPHEN 325 MG TAB PO PRN (10:56)
[2023-01-05] MEDS ORDERED: hydrOXYzine HCl 25 MG TAB PO PRN ×2 (10:56)
[2023-01-05] MEDS ORDERED: SODIUM CHLORIDE 0.65% NA SOLN 45 ML (OCEAN) PRN (10:56)
[2023-01-05] MEDS ORDERED: ALUMINUM/MAGNESIUM SUSP 30 ML UDC PO PRN (10:56)
--- NOTE | 2023-01-05 14:33 | History & Physical ---
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 Diagnostically consistent with unspecified depression with differential including MDD versus adjustment disorder with depressed and anxious mood versus unspecified mood disorder. He is deemed in need of psychiatric hospitalization for diagnostic clarification, safety and stabilization, medication management and development of further coping skills. (1) Intentional acetaminophen overdose: Encounter type: initial encounter Qualified Code(s): T39.1X2A - Poisoning by 4-Aminophenol derivatives, intentional self-harm, initial encounter (2) Suicide attempt by multiple drug overdose: Encounter type: initial encounter Qualified Code(s): T50.912A - Poisoning by multiple unspecified drugs, medicaments and biological substances, intentional self-harm, initial encounter (3) Depression, unspecified: Plan 01/05/2023: The patient was admitted to the [facility] ([facility] unit) on q15 min checks (behavioral with suicide precautions) for safety. The patient will participate in group, recreational, and milieu therapies and will be offered additional individual and family sessions as clinically appropriate. -Provided with CAMS to further identify driving factors behind suicide attempt -He prefers to hold off on starting any psychiatric medication at this time, will continue to explore symptoms and re-evaluate potential utility for medication Inventory Assets Strengths: supportive relationships, willing to get treatment Needs: safety and stabilization, medication adjustment, additional coping skills, increased outpatient services Suicide Risk Level Suicide Risk Level: High-Moderate (q15 min suicide checks) (High-Moderate due to serious and planned out suicide attempt prior to admission but feels safe in the hospital, able to safety contract and agrees to let nursing/staff know should they develop plan, intent or feel unable to remain safe.) Suicide Risk Level Comments: Risk Factors Assessment Male: Yes : No Do You Have Access To A Gun?: No Health Problems: No Mental Health Diagnoses: Yes Substance Use Disorders: No Previous Attempt: Yes Family History of Suicide: No Previous Psychiatric Hospitalization: No Hopelessness: Yes Protective Factors Assessment Stable Relationships: Yes Supportive Family: Yes Psychiatric History Identifying Data SEAN WASHINGTON is a 22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 Chief Complaint "I've always had the sense that something in this world is wrong for me". History of Present Illness Sean was initially seen by me on the consult service after he was medically admitted following serious overdose suicide attempt. Further recent history per my consult from 01/04/2023: "Sean was admitted medically following suicide attempt via ingestion of acetaminophen and ibuprofen. 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 He has been questioning his future due to the academic challenges and not liking his academic work and this lead to him feeling disappointed and "I didn't want to continue but I also don't want to start all over again". He then was given a plagiarism notice for a recent project and notes this was like "the final nail in the coffin" and he decided to attempt suicide. He states he was not an impulsive attempt and that "I was thinking logically". He remains unsure about how he feels about being alive." Today he reports adjusting well to the inpatient psychiatric setting. We again explore events and driving factors leading to his suicide attempt. He is unsure that he was experiencing depression rather notes that well it is difficult to describe in [place]itanian, his iqugmiut language is Indonesian, that he's always had the sense that "that something in this world is wrong for me". He expands on this as feeling as though he never transitioned from childhood to adulthood as he doesn't like the responsibilities of adulthood and has a hard time imagining a life that could be fulfilling that includes "I can't imagine working and coming home to see my family day after day". 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 He is feeling better about being alive, especially in reflecting about impact of his attempt on his family but continues to feel that the attempt was "based in my own impaired logical, it was thought out, it wasn't impulsive". Notes that he researched out much acetaminophen would be needed to be lethal "I even found the lethal dose". Past Psychiatric History Current Psychiatric Diagnosis: Unspecified mood disorder Outpatient Services: none Previous Psych Admissions: n/a Do You Have Access To A Gun?: No History of Previous Suicide Attempt: No (until current attempt leading to admission) Past Medication Trials: none Past Head Trauma/Neuro History History of Concussion/Seizure: No Allergies Allergy/AdvReac Type Severity Reaction Status Date / Time No Known Drug Allergies Allergy Unknown Verified 01/05/23 18:36 Home Medications Medication Instructions Recorded Confirmed Type No Known Home Medications 01/03/23 01/03/23 History Family History Family History of: None Alcohol History Hx of Alcohol Use Over the Past 12 Months: No AUDIT Total Score: 0 Smoking Use Have You Smoked or Used Tobacco Products in the Last 30 Days: No tobacco type: cigarettes Smoking Status: Current some day smoker (may smoke 3-5 cigarettes every other week or so ) Substance History Hx of Prescription Med Misuse Over the Past 12 Months: No Hx of Over the Counter Med Misuse Over the Past 12 Months: No Hx of Inhalent Misuse Over the Past 12 Months: No Hx of Organic Substance Use Over the Past 12 Months: No Hx of Illegal Substances/Street Drug Use Over Past 12 Months: No Problems as a Result of Past Substance Use: None Identified Personal History Childhood: Raised in [place], went to undergraduate school there. Has three older siblings-the y live in [place] and one sister in [place]. Parents are in [place]. 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 [employer]) Employment Status: Student Marital Status: Single (has long-term girlfriend ) Beliefs That Will Affect Care: None Current Legal Problems: No Hx Legal Problems: No Hx Traumatic Life Events: No Patient History Medical History No pertinent past medical history Surgical History No pertinent past surgical history Social History (Updated 01/05/23 @ 18:39 by Joseline Lan MD) Smoking Status: Current some day smoker (may smoke 3-5 cigarettes every other week or so ) Cigarettes Per Day: smokes occasionaly; Second Hand Exposure: No; Do You Dip or Chew Tobacco: No; Hx Alcohol Use: No Hx Substance Use: No Preferred Language: Mauritanian Communication Ability: Effective Warehouse Guard Required: No Beliefs That Will Affect Care: None Current Living Situation: Alone Current Living Situation Comment: student housing current occupational status: student Feels Safe at Home: Yes Gender Identity: Male Assistive Devices: None Review of Systems Review of Systems: All systems reviewed & are unremarkable except as noted in HPI & below (stomach feels "slightly off" but no pain, improved from yesterday) Physical Exam Psychiatric: Orientation: alert and oriented x 3 Apperance: appropriately dressed and appropriately groomed Eye Contact: good eye contact Motor Behavior: no abnormal motor movements Speech: normal rate/rhythm/volume of speech Affect: + anxious affect Mood: + depressed mood Thought Process: goal directed thought process Thought Content: reality based without delusions Suicidal Thoughts: denies suicidal plan (but s/p serious attempt) and denies suicidal intent; + reports suicidal thoughts (intermittent but feels safe in the hospital) Homicidal Thoughts: denies homicidal thoughts Hallucinations: no auditory hallucinations and no visual hallucinations Cognition: attention grossly intact and language grossly intact Estimated Intelligence: consistent with education level Insight: + limited insight Judgment: + limited judgement Vital Signs (Past 24 Hours): Last Vital Signs Temp 36.7 C 01/05/23 12:36 Pulse 72 01/05/23 12:36 Resp 16 01/05/23 12:36 BP 122/78 01/05/23 12:36 Exam Statement: A physical exam was performed on the medical floor by Dr. Torres for the purposes of medical clearance. I accept that physical as correct and adequate for the purposes of the inpatient physical exam. Results & Data ([facility]) Current Inpatient Medications Current Inpatient Medications: Current Inpatient Medications Acetaminophen (Acetaminophen 325 Mg Tab) 650 mg PO Q4H PRN PRN Reason: Headache or Minor Fever Stop: 02/04/23 10:55 Al Hydrox/Mg Hydrox/Simethicone (Aluminum/Magnesium Susp 30 Ml Udc) 30 ml PO Q4H PRN PRN Reason: GI Upset Stop: 02/04/23 10:55 Bismuth Subsalicylate (Bismuth Subsalicylate Liqd 236 Ml) 15 ml PO PRN PRN PRN Reason: Loose Stool Stop: 02/04/23 10:55 Hydroxyzine HCl (Hydroxyzine Hcl 25 Mg Tab) 50 mg PO HSZ PRN PRN Reason: Insomnia Stop: 02/04/23 10:55 Hydroxyzine HCl (Hydroxyzine Hcl 25 Mg Tab) 25 mg PO Q4H PRN PRN Reason: Anxiety Stop: 02/04/23 10:55 Magnesium Hydroxide (Magnesium Hydroxide Susp 30 Ml Udc) 30 ml PO DAILY PRN PRN Reason: Constipation Stop: 02/04/23 10:55 Sodium Chloride (Sodium Chloride 0.65% Na Soln 45 Ml ([place])) 1 - 2 sprays NA PRN PRN PRN Reason: Nasal Dryness/Congestion Stop: 02/04/23 10:55
[2023-01-06] MEDS: MAGNESIUM HYDROXIDE SUSP 30 ML UDC PO PRN (10:59)
--- NOTE | 2023-01-06 12:23 | Psychiatric Progress Note ---
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 Diagnostically consistent with unspecified depression with differential including MDD versus adjustment disorder with depressed and anxious mood versus unspecified mood disorder. He is deemed in need of psychiatric hospitalization for diagnostic clarification, safety and stabilization, medication management and development of further coping skills. 01/06/2023: Ongoing depression and hopelessness about his future. Discussed medication options for constipation, colace added. Discussed medication treatment options in detail for depression. Discussed risks, benefits and alternatives. Patient would like to start and consented to Wellbutrin for MDD/c oncentration difficulties.Reviewed side effects including but not limited to: elevated BP, elevated HR, insomnia, decreased appetite, decreased seizure threshold, and counseled on black box warning of potential for emergence of or increased SI and need to let staff know should this occur or should they feel unsafe. Also discussed importance of seeking emergency care following discharge if this side effect occurs in the future. (1) Intentional acetaminophen overdose: (2) Suicide attempt by multiple drug overdose: (3) Depression, unspecified: Plan 01/06/2023: Start Wellbutrin XL 150mg qAM tomorrow. Colace added for constipation. 01/05/2023: The patient was admitted to the [facility] ([facility] mental health unit) on q15 min checks (behavioral with suicide precautions) for safety. The patient will participate in group, recreational, and milieu therapies and will be offered additional individual and family sessions as clinically appropriate. -Provided with CAMS to further identify driving factors behind suicide attempt -He prefers to hold off on starting any psychiatric medication at this time, will continue to explore symptoms and re-evaluate potential utility for medication Inventory Assets Strengths: supportive relationships, willing to get treatment Needs: safety and stabilization, medication adjustment, additional coping skills, increased outpatient services Suicide Risk Level Suicide Risk Level: High-Moderate (q15 min suicide checks) (High-Moderate due to serious and planned out suicide attempt prior to admission but feels safe in the hospital, able to safety contract and agrees to let nursing/staff know should they develop plan, intent or feel unable to remain safe.) Suicide Risk Level Comments: Risk Factors Assessment Male: Yes : No Do You Have Access To A Gun?: No Health Problems: No Mental Health Diagnoses: Yes Substance Use Disorders: No Previous Attempt: Yes Family History of Suicide: No Previous Psychiatric Hospitalization: No Hopelessness: Yes Protective Factors Assessment Stable Relationships: Yes Supportive Family: Yes Interval History Identifying Information SEAN WASHINGTON is a 22-year-old man and 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 Chief Complaint "My problems are different than everyone else". Review of Systems Sleep Information Total Hours of Sleep: 6.5 Meal Information Percent Meal Consumed - Dinner: 100 Subjective Subjective Patient was seen & assessed and interval progress reviewed with treatment team nursing and social work. He completed CAMS and we discussed this including reasons for living and reasons for dying. He rates his current risk of suicide as low but continues to question how to function in a traditional life role and during a group brought feeling as though he didn't want to be on this Earth. He continues to feel that hospitalization will not help him but is engaging in groups and agreeable to meeting with the unit counselor and processing options for his future. He would like to try a medication to help with depression and concentration. Notes that until his PhD program everything academically had always "come easy" to him with "little effort". Has not had a bowel movement in three days. Physical Exam Psychiatric Orientation: alert and oriented x 3 Apperance: appropriately dressed and appropriately groomed Eye Contact: good eye contact Motor Behavior: no abnormal motor movements Speech: normal rate/rhythm/volume of speech Affect: + anxious affect Mood: + depressed mood Thought Process: goal directed thought process Thought Content: reality based without delusions Suicidal Thoughts: denies suicidal plan (but s/p serious attempt) and denies suicidal intent; + reports suicidal thoughts (intermittent but feels safe in the hospital) Homicidal Thoughts: denies homicidal thoughts Hallucinations: no auditory hallucinations and no visual hallucinations Cognition: attention grossly intact and language grossly intact Estimated Intelligence: consistent with education level Insight: + limited insight Judgment: + limited judgement Vital Signs (Past 24 Hours) Last Vital Signs Temp 36.8 C 01/06/23 06:42 Pulse 116 H 01/06/23 06:42 Resp 16 01/06/23 06:42 BP 123/69 01/06/23 06:42 Results & Data ([facility]) Current Inpatient Medications Current Inpatient Medications: Current Inpatient Medications Acetaminophen (Acetaminophen 325 Mg Tab) 650 mg PO Q4H PRN PRN Reason: Headache or Minor Fever Stop: 02/04/23 10:55 Al Hydrox/Mg Hydrox/Simethicone (Aluminum/Magnesium Susp 30 Ml Udc) 30 ml PO Q4H PRN PRN Reason: GI Upset Stop: 02/04/23 10:55 Bismuth Subsalicylate (Bismuth Subsalicylate Liqd 236 Ml) 15 ml PO PRN PRN PRN Reason: Loose Stool Stop: 02/04/23 10:55 Hydroxyzine HCl (Hydroxyzine Hcl 25 Mg Tab) 50 mg PO HSZ PRN PRN Reason: Insomnia Stop: 02/04/23 10:55 Hydroxyzine HCl (Hydroxyzine Hcl 25 Mg Tab) 25 mg PO Q4H PRN PRN Reason: Anxiety Stop: 02/04/23 10:55 Magnesium Hydroxide (Magnesium Hydroxide Susp 30 Ml Udc) 30 ml PO DAILY PRN PRN Reason: Constipation Stop: 02/04/23 10:55 Last Admin: 01/06/23 10:59 Dose: 30 ml Sodium Chloride (Sodium Chloride 0.65% Na Soln 45 Ml ([place])) 1 - 2 sprays NA PRN PRN PRN Reason: Nasal Dryness/Congestion Stop: 02/04/23 10:55 (1) Intentional acetaminophen overdose Encounter type: initial encounter Qualified Code(s): T39.1X2A - Poisoning by 4-Aminophenol derivatives, intentional self-harm, initial encounter (2) Suicide attempt by multiple drug overdose Encounter type: initial encounter Qualified Code(s): T50.912A - Poisoning by multiple unspecified drugs, medicaments and biological substances, intentional self-harm, initial encounter
[2023-01-06] MEDS: DOCUSATE SODIUM 100 MG CAP PO SCH (20:30)
[2023-01-07] MEDS: MAGNESIUM HYDROXIDE SUSP 30 ML UDC PO PRN (06:17)
[2023-01-07] MEDS: buPROPion XL 150 MG TABCR PO SCH (09:06)
[2023-01-07] MEDS: DOCUSATE SODIUM 100 MG CAP PO SCH ×2 (09:06→21:38)
--- NOTE | 2023-01-07 13:14 | Psychiatric Progress Note ---
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 Diagnostically consistent with unspecified depression with differential including MDD versus adjustment disorder with depressed and anxious mood versus unspecified mood disorder. He is deemed in need of psychiatric hospitalization for diagnostic clarification, safety and stabilization, medication management and development of further coping skills. 01/07/2023: Less depressed today, starting to think a little more about his future. Engaging in groups more actively. Tolerating initial dose of Wellbutrin so far. (1) Intentional acetaminophen overdose: (2) Suicide attempt by multiple drug overdose: (3) Depression, unspecified: Plan 01/07/2023: Continue current medications and tx plan. 01/06/2023: Start Wellbutrin XL 150mg qAM tomorrow. Colace added for constipation. 01/05/2023: The patient was admitted to the [facility] ([facility] mental health unit) on q15 min checks (behavioral with suicide precautions) for safety. The patient will participate in group, recreational, and milieu therapies and will be offered additional individual and family sessions as clinically appropriate. -Provided with CAMS to further identify driving factors behind suicide attempt -He prefers to hold off on starting any psychiatric medication at this time, will continue to explore symptoms and re-evaluate potential utility for medication Inventory Assets Strengths: supportive relationships, willing to get treatment Needs: safety and stabilization, medication adjustment, additional coping skills, increased outpatient services Suicide Risk Level Suicide Risk Level: High-Moderate (q15 min suicide checks) (serious and planned out suicide attempt prior to admission but mood starting to improve, denies SI, feels safe in the hospital, able to safety contract and agrees to let nursing/staff know should they develop plan, intent or feel unable to remain safe.) Suicide Risk Level Comments: Risk Factors Assessment Male: Yes : No Do You Have Access To A Gun?: No Health Problems: No Mental Health Diagnoses: Yes Substance Use Disorders: No Previous Attempt: Yes Family History of Suicide: No Previous Psychiatric Hospitalization: No Hopelessness: Yes Protective Factors Assessment Stable Relationships: Yes Supportive Family: Yes Interval History Identifying Information CHEN WASHINGTON is a 22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 Chief Complaint "I'm ok". Review of Systems Sleep Information Total Hours of Sleep: 7 Meal Information Percent Meal Consumed - Breakfast: 100 Percent Meal Consumed - Lunch: 100 Percent Meal Consumed - Dinner: 75 Subjective Subjective Patient was seen & assessed and interval progress reviewed with treatment team nursing and social work. Reports his mood is "ok". Got first dose of Wellbutrin this morning and hasn't noticed any side effects. Had stomach pain last night but had bowel movement today and feels much better. Denies SI. 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 Physical Exam Psychiatric Orientation: alert and oriented x 3 Apperance: appropriately dressed and appropriately groomed Eye Contact: good eye contact Motor Behavior: no abnormal motor movements Speech: normal rate/rhythm/volume of speech Affect: + anxious affect Mood: + depressed mood Thought Process: goal directed thought process Thought Content: reality based without delusions Suicidal Thoughts: denies suicidal thoughts, denies suicidal plan (but s/p serious attempt) and denies suicidal intent Homicidal Thoughts: denies homicidal thoughts Hallucinations: no auditory hallucinations and no visual hallucinations Cognition: attention grossly intact and language grossly intact Estimated Intelligence: consistent with education level Insight: + limited insight Judgment: + limited judgement Vital Signs (Past 24 Hours) Last Vital Signs Temp 36.9 C 01/07/23 06:51 Pulse 105 H 01/07/23 06:53 Resp 16 01/07/23 06:51 BP 102/69 01/07/23 06:53 Results & Data ([facility]) Current Inpatient Medications Current Inpatient Medications: Current Inpatient Medications Acetaminophen (Acetaminophen 325 Mg Tab) 650 mg PO Q4H PRN PRN Reason: Headache or Minor Fever Stop: 02/04/23 10:55 Al Hydrox/Mg Hydrox/Simethicone (Aluminum/Magnesium Susp 30 Ml Udc) 30 ml PO Q4H PRN PRN Reason: GI Upset Stop: 02/04/23 10:55 Bismuth Subsalicylate (Bismuth Subsalicylate Liqd 236 Ml) 15 ml PO PRN PRN PRN Reason: Loose Stool Stop: 02/04/23 10:55 Bupropion HCl (Bupropion Xl 150 Mg Tabcr) 150 mg PO QAM [facility] Stop: 02/06/23 08:59 Last Admin: 01/07/23 09:06 Dose: 150 mg Docusate Sodium (Docusate Sodium 100 Mg Cap) 100 mg PO BID DINORAH Stop: 02/05/23 20:59 Last Admin: 01/07/23 09:06 Dose: 100 mg Hydroxyzine HCl (Hydroxyzine Hcl 25 Mg Tab) 50 mg PO HSZ PRN PRN Reason: Insomnia Stop: 02/04/23 10:55 Hydroxyzine HCl (Hydroxyzine Hcl 25 Mg Tab) 25 mg PO Q4H PRN PRN Reason: Anxiety Stop: 02/04/23 10:55 Magnesium Hydroxide (Magnesium Hydroxide Susp 30 Ml Udc) 30 ml PO DAILY PRN PRN Reason: Constipation Stop: 02/04/23 10:55 Last Admin: 01/07/23 06:17 Dose: 30 ml Sodium Chloride (Sodium Chloride 0.65% Na Soln 45 Ml ([place])) 1 - 2 sprays NA PRN PRN PRN Reason: Nasal Dryness/Congestion Stop: 02/04/23 10:55 (1) Intentional acetaminophen overdose Encounter type: initial encounter Qualified Code(s): T39.1X2A - Poisoning by 4-Aminophenol derivatives, intentional self-harm, initial encounter (2) Suicide attempt by multiple drug overdose Encounter type: initial encounter Qualified Code(s): T50.912A - Poisoning by multiple unspecified drugs, medicaments and biological substances, intentional self-harm, initial encounter
[2023-01-08] MEDS ORDERED: SENNA 8.6 MG TAB PO ONE (10:19)
[2023-01-08] MEDS: buPROPion XL 150 MG TABCR PO SCH (10:22)
[2023-01-08] MEDS: DOCUSATE SODIUM 100 MG CAP PO SCH ×2 (11:07→20:21)
[2023-01-08 11:10] LABS: Albumin Globulin Ratio 1.6 (0.9-2); Albumin Level 4.5 gm/dl (3.4-5.0); BUN Creatinine Ratio 11.5 (10-20); Bilirubin,Total 0.6 mg/dl (0.2-1.0); Calcium 9.6 mg/dl (8.6-10.3); Creatinine Clr Calc Pharmacy 174.5 ml/min; Est GFR (African American) 146.4 ml/min; Est GFR (Non-African American) 126.3 ml/min; Globulin 2.8 gm/dl (2.5-4.0); Potassium 4.3 mmol/L (3.5-5.1); Total Protein 7.3 gm/dl (6.0-8.3)
--- NOTE | 2023-01-08 11:39 | Psychiatric Progress Note ---
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 Diagnostically consistent with unspecified depression with differential including MDD versus adjustment disorder with depressed and anxious mood versus unspecified mood disorder. He is deemed in need of psychiatric hospitalization for diagnostic clarification, safety and stabilization, medication management and development of further coping skills. 01/08/2023: Increased stomach pain today, seems to be due to constipation. Reviewed CMP which was reassuring, normal LFTs, normal electrolytes. Tolerating Wellbutrin XL well, would be usual for this to cause GI symptoms and he feels the GI issues were there before starting this so wants to continue. Today opening up a bit more about possible contributing factors to recent depression, alluding to possible trauma component or other recent stressors since moving to the . (1) Intentional acetaminophen overdose: (2) Suicide attempt by multiple drug overdose: (3) Depression, unspecified: Plan 01/08/2023: Continue current medications and tx plan. Adding senna to help with constipation. 01/07/2023: Continue current medications and tx plan. 01/06/2023: Start Wellbutrin XL 150mg qAM tomorrow. Colace added for constipation. 01/05/2023: The patient was admitted to the [facility] ([facility] mental health unit) on q15 min checks (behavioral with suicide precautions) for safety. The patient will participate in group, recreational, and milieu therapies and will be offered additional individual and family sessions as clinically appropriate. -Provided with CAMS to further identify driving factors behind suicide attempt -He prefers to hold off on starting any psychiatric medication at this time, will continue to explore symptoms and re-evaluate potential utility for medication Inventory Assets Strengths: supportive relationships, willing to get treatment Needs: safety and stabilization, medication adjustment, additional coping skills, increased outpatient services Suicide Risk Level Suicide Risk Level: Moderate (q15 min suicide checks) (serious and planned out suicide attempt prior to admission but mood starting to improve, denies SI, feels safe in the hospital, able to safety contract and agrees to let nursing/staff know should they develop plan, intent or feel unable to remain safe.) Suicide Risk Level Comments: Risk Factors Assessment Male: Yes : No Do You Have Access To A Gun?: No Health Problems: No Mental Health Diagnoses: Yes Substance Use Disorders: No Previous Attempt: Yes Family History of Suicide: No Previous Psychiatric Hospitalization: No Hopelessness: Yes Protective Factors Assessment Stable Relationships: Yes Supportive Family: Yes Interval History Identifying Information SEAN WASHINGTON is 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 Chief Complaint "My girlfriend encouraged me to talk about some difficult stuff that's happened since I came to the [place]". Review of Systems Sleep Information Total Hours of Sleep: 7 Meal Information Percent Meal Consumed - Breakfast: 0 Percent Meal Consumed - Lunch: 100 Percent Meal Consumed - Dinner: 100 Subjective Subjective Patient was seen & assessed and interval progress reviewed with treatment team nursing and social work. Declined to participate in one of the groups [facility]. This morning spent a long time talking to his girlfriend. Reports ongoing GI symptoms of cramping which caused difficulty sleeping again. States that while he did a have a bowel movement yesterday it was very small. Discussed getting some labwork to ensure no elevation in LFTs given recent ingestion or other abnormalities which he is agreeable to. Agreeable to adding senna with colace to help with suspected constipation. Denies nausea/vomiting/bloody stool/dizziness/sharp pain. Endorses decreased appetite. Has not noticed any side effects from Wellbutrin and wants to continue with this. Reports he'd like to speak with one of the unit counselors to discuss "difficult stuff that happened since I came to the [place]". Declines to speak about this with me, reviewed options for when to meet with a counselor and he plans to speak with unit counselor later this evening or tomorrow. Physical Exam Psychiatric Orientation: alert and oriented x 3 Apperance: appropriately dressed and appropriately groomed Eye Contact: good eye contact Motor Behavior: no abnormal motor movements Speech: normal rate/rhythm/volume of speech Affect: + anxious affect Mood: + depressed mood Thought Process: goal directed thought process Thought Content: reality based without delusions Suicidal Thoughts: denies suicidal thoughts, denies suicidal plan (but s/p serious attempt) and denies suicidal intent Homicidal Thoughts: denies homicidal thoughts Hallucinations: no auditory hallucinations and no visual hallucinations Cognition: attention grossly intact and language grossly intact Estimated Intelligence: consistent with education level Insight: + limited insight Judgment: + limited judgement Vital Signs (Past 24 Hours) Last Vital Signs Temp 37.3 C 01/08/23 06:00 Pulse 82 01/08/23 06:00 Resp 18 01/08/23 06:00 BP 114/68 01/08/23 06:58 Pulse Ox 100 01/08/23 06:00 O2 Del Method Room Air 01/08/23 06:00 Results & Data ([facility]) Laboratory Results Laboratory Results - last 24 hr 01/08/23 10:36 Sodium 139 Potassium 4.3 Chloride 104 Carbon Dioxide 30 Anion Gap 5 BUN 9 Creatinine 0.78 Est Cr Clr Drug Dosing 174.5 Est GFR ( Amer) 146.4 Est GFR (Non-Af Amer) 126.3 BUN/Creatinine Ratio 11.5 Glucose 124 H Calcium 9.6 Total Bilirubin 0.6 AST 13 ALT 19 Alkaline Phosphatase 63 Total Protein 7.3 Albumin 4.5 Globulin 2.8 Albumin/Globulin Ratio 1.6 Current Inpatient Medications Current Inpatient Medications: Current Inpatient Medications Acetaminophen (Acetaminophen 325 Mg Tab) 650 mg PO Q4H PRN PRN Reason: Headache or Minor Fever Stop: 02/04/23 10:55 Al Hydrox/Mg Hydrox/Simethicone (Aluminum/Magnesium Susp 30 Ml Udc) 30 ml PO Q4H PRN PRN Reason: GI Upset Stop: 02/04/23 10:55 Bismuth Subsalicylate (Bismuth Subsalicylate Liqd 236 Ml) 15 ml PO PRN PRN PRN Reason: Loose Stool Stop: 02/04/23 10:55 Bupropion HCl (Bupropion Xl 150 Mg Tabcr) 150 mg PO QAM [facility] Stop: 02/06/23 08:59 Last Admin: 01/08/23 10:22 Dose: 150 mg Docusate Sodium (Docusate Sodium 100 Mg Cap) 100 mg PO BID DINORAH Stop: 02/05/23 20:59 Last Admin: 01/08/23 11:07 Dose: 100 mg Hydroxyzine HCl (Hydroxyzine Hcl 25 Mg Tab) 50 mg PO HSZ PRN PRN Reason: Insomnia Stop: 02/04/23 10:55 Hydroxyzine HCl (Hydroxyzine Hcl 25 Mg Tab) 25 mg PO Q4H PRN PRN Reason: Anxiety Stop: 02/04/23 10:55 Magnesium Hydroxide (Magnesium Hydroxide Susp 30 Ml Udc) 30 ml PO DAILY PRN PRN Reason: Constipation Stop: 02/04/23 10:55 Last Admin: 01/07/23 06:17 Dose: 30 ml Sodium Chloride (Sodium Chloride 0.65% Na Soln 45 Ml ([place])) 1 - 2 sprays NA PRN PRN PRN Reason: Nasal Dryness/Congestion Stop: 02/04/23 10:55 Mental Health & Subst Abuse Tx Psychiatrist Name of Psychiatrist: Gutierrez Joshua PA-C Psychiatrist's Date Of Appointment With Psychiatric Provider: 01/16/23 Time of Appointment with Psychiatrist: 8:45 AM Psychiatric Appointment Comment: [address], [place] [address] Therapist Name of Therapist: [facility] - Intake with [facility] The[facility]'s Date of Therapist Appointment: 01/22/23 Time of Therapist Appointment: 9:30 AM Therapy Appointment Comment: [address], [address], [place] [address] Post Discharge Appointments Primary Care Physician Name Of Family Doctor/PCP: [facility] Primary Care Provider Appointment Comment: Please follow up with PCP as needed. Contact Information Discharge Discharge Address: [address] [place] [address], [place] [address] (1) Intentional acetaminophen overdose Encounter type: initial encounter Qualified Code(s): T39.1X2A - Poisoning by 4-Aminophenol derivatives, intentional self-harm, initial encounter (2) Suicide attempt by multiple drug overdose Encounter type: initial encounter Qualified Code(s): T50.912A - Poisoning by multiple unspecified drugs, medicaments and biological substances, intentional self-harm, initial encounter
[2023-01-09] MEDS: buPROPion XL 150 MG TABCR PO SCH (08:48)
[2023-01-09] MEDS: DOCUSATE SODIUM 100 MG CAP PO SCH (08:48)
[2023-01-09] MEDS ORDERED: SENNA 8.6 MG TAB PO ONE (09:26)
[2023-01-09] MEDS ORDERED: DOCUSATE SODIUM/SENNA 50/8.6MG TAB PO SCH (09:30)
--- NOTE | 2023-01-09 09:42 | Psychiatric Progress Note ---
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 Diagnostically consistent with unspecified depression with differential including MDD (seems most likely) versus adjustment disorder with depressed and anxious mood versus unspecified mood disorder. He is deemed in need of psychiatric hospitalization for diagnostic clarification, safety and stabilization, medication management and development of further coping skills. 01/09/2023: Processing more of his recent stressors and worries about what leaving the [place] would mean for his future in regards to his career and his relationship. A little more hopeful. Stomach pain resolved after bowel movement. Tolerating Wellbutrin without any side effects. Denies SI. (1) Intentional acetaminophen overdose: (2) Suicide attempt by multiple drug overdose: (3) Major depressive disorder with current active episode: (4) Depression, unspecified: Plan 01/09/2023: Continue current medications and tx plan. 01/08/2023: Continue current medications and tx plan. Adding senna to help with constipation. 01/07/2023: Continue current medications and tx plan. 01/06/2023: Start Wellbutrin XL 150mg qAM tomorrow. Colace added for constipation. 01/05/2023: The patient was admitted to the [facility] ([facility] mental health unit) on q15 min checks (behavioral with suicide precautions) for safety. The patient will participate in group, recreational, and milieu therapies and will be offered additional individual and family sessions as clinically appropriate. -Provided with CAMS to further identify driving factors behind suicide attempt -He prefers to hold off on starting any psychiatric medication at this time, will continue to explore symptoms and re-evaluate potential utility for medication Inventory Assets Strengths: supportive relationships, willing to get treatment Needs: safety and stabilization, medication adjustment, additional coping skills, increased outpatient services Suicide Risk Level Suicide Risk Level: Moderate (q15 min suicide checks) (serious and planned out suicide attempt prior to admission but mood starting to improve, denies SI, feels safe in the hospital, able to safety contract and agrees to let nursing/staff know should they develop plan, intent or feel unable to remain safe.) Suicide Risk Level Comments: Risk Factors Assessment Male: Yes : No Do You Have Access To A Gun?: No Health Problems: No Mental Health Diagnoses: Yes Substance Use Disorders: No Previous Attempt: Yes Family History of Suicide: No Previous Psychiatric Hospitalization: No Hopelessness: Yes Protective Factors Assessment Stable Relationships: Yes Supportive Family: Yes Interval History Identifying Information SEAN WASHINGTON is a 22-year-old man and 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 Chief Complaint "I'm good, kind of bored". Review of Systems Sleep Information Total Hours of Sleep: 7 Meal Information Percent Meal Consumed - Breakfast: 0 Percent Meal Consumed - Lunch: 100 Percent Meal Consumed - Dinner: 0 Nutrition Comment: Pt is complaining of an upset stomach. Subjective Subjective Patient was seen & assessed and interval progress reviewed with treatment team nursing and social work. Attending groups. Processed difficulties in his lab with unit counselor and what his future might entail if he ends up having to return to [employer] [facility]. A little hopeful about his future overall. Denies SI. Had a bowel movement today and no longer experiencing any stomach issues. No side effects from Wellbutrin. Physical Exam Psychiatric Orientation: alert and oriented x 3 Apperance: appropriately dressed and appropriately groomed Eye Contact: good eye contact Motor Behavior: no abnormal motor movements Speech: normal rate/rhythm/volume of speech Affect: + constricted affect Mood: + depressed mood Thought Process: goal directed thought process Thought Content: reality based without delusions Suicidal Thoughts: denies suicidal thoughts, denies suicidal plan and denies suicidal intent Homicidal Thoughts: denies homicidal thoughts Hallucinations: no auditory hallucinations and no visual hallucinations Cognition: attention grossly intact and language grossly intact Estimated Intelligence: consistent with education level Insight: + fair insight Judgment: + fair judgement Vital Signs (Past 24 Hours) Last Vital Signs Temp 36.8 C 01/09/23 06:41 Pulse 88 01/09/23 06:42 Resp 16 01/09/23 06:41 BP 108/70 01/09/23 06:42 Pulse Ox 100 01/08/23 06:00 O2 Del Method Room Air 01/08/23 06:00 Results & Data ([facility]) Laboratory Results Laboratory Results - last 24 hr 01/08/23 10:36 Sodium 139 Potassium 4.3 Chloride 104 Carbon Dioxide 30 Anion Gap 5 BUN 9 Creatinine 0.78 Est Cr Clr Drug Dosing 174.5 Est GFR ( Amer) 146.4 Est GFR (Non-Af Amer) 126.3 BUN/Creatinine Ratio 11.5 Glucose 124 H Calcium 9.6 Total Bilirubin 0.6 AST 13 ALT 19 Alkaline Phosphatase 63 Total Protein 7.3 Albumin 4.5 Globulin 2.8 Albumin/Globulin Ratio 1.6 Current Inpatient Medications Current Inpatient Medications: Current Inpatient Medications Acetaminophen (Acetaminophen 325 Mg Tab) 650 mg PO Q4H PRN PRN Reason: Headache or Minor Fever Stop: 02/04/23 10:55 Al Hydrox/Mg Hydrox/Simethicone (Aluminum/Magnesium Susp 30 Ml Udc) 30 ml PO Q4H PRN PRN Reason: GI Upset Stop: 02/04/23 10:55 Bismuth Subsalicylate (Bismuth Subsalicylate Liqd 236 Ml) 15 ml PO PRN PRN PRN Reason: Loose Stool Stop: 02/04/23 10:55 Bupropion HCl (Bupropion Xl 150 Mg Tabcr) 150 mg PO QAM DINORAH Stop: 02/06/23 08:59 Last Admin: 01/09/23 08:48 Dose: 150 mg Hydroxyzine HCl (Hydroxyzine Hcl 25 Mg Tab) 50 mg PO HSZ PRN PRN Reason: Insomnia Stop: 02/04/23 10:55 Hydroxyzine HCl (Hydroxyzine Hcl 25 Mg Tab) 25 mg PO Q4H PRN PRN Reason: Anxiety Stop: 02/04/23 10:55 Magnesium Hydroxide (Magnesium Hydroxide Susp 30 Ml Udc) 30 ml PO DAILY PRN PRN Reason: Constipation Stop: 02/04/23 10:55 Last Admin: 01/07/23 06:17 Dose: 30 ml Senna/Docusate Sodium (Docusate Sodium/Senna 50/8.6mg Tab) 1 tab PO BID DINORAH Stop: 02/08/23 20:59 Sodium Chloride (Sodium Chloride 0.65% Na Soln 45 Ml ([place])) 1 - 2 sprays NA PRN PRN PRN Reason: Nasal Dryness/Congestion Stop: 02/04/23 10:55 Mental Health & Subst Abuse Tx Psychiatrist Name of Psychiatrist: Gutierrez De La Fuente - Shayla Joshua PA-C Psychiatrist's Date Of Appointment With Psychiatric Provider: 01/16/23 Time of Appointment with Psychiatrist: 8:45 AM Psychiatric Appointment Comment: [address], [place] [address] Therapist Name of Therapist: [facility] - Intake with [facility] Therapist's Date of Therapist Appointment: 01/22/23 Time of Therapist Appointment: 9:30 AM Therapy Appointment Comment: [address], [address], [place] [address] Post Discharge Appointments Primary Care Physician Name Of Family Doctor/PCP: [facility] Primary Care Provider Appointment Comment: Please follow up with PCP as needed. Contact Information Discharge Discharge Address: [address], [place] [address] (1) Intentional acetaminophen overdose Encounter type: initial encounter Qualified Code(s): T39.1X2A - Poisoning by 4-Aminophenol derivatives, intentional self-harm, initial encounter (2) Suicide attempt by multiple drug overdose Encounter type: initial encounter Qualified Code(s): T50.912A - Poisoning by multiple unspecified drugs, medicaments and biological substances, intentional self-harm, initial encounter
[2023-01-09] MEDS: DOCUSATE SODIUM/SENNA 50/8.6MG TAB PO SCH (21:09)
[2023-01-10] MEDS: DOCUSATE SODIUM/SENNA 50/8.6MG TAB PO SCH (09:42)
[2023-01-10] MEDS: buPROPion XL 150 MG TABCR PO SCH (09:42)
--- NOTE | 2023-01-10 10:16 | Discharge Summary ---
Date of Service January 10, 2023 History of Present Illness Chen was initially seen by me on the consult service after he was medically admitted following serious overdose suicide attempt. Further recent history per my consult from 01/04/2023: "Chen was admitted medically following suicide attempt via ingestion of acetaminophen and ibuprofen. 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 He has been questioning his future due to the academic challenges and not liking his academic work and this lead to him feeling disappointed and "I didn't want to continue but I also don't want to start all over again". He then was given a plagiarism notice for a recent project and notes this was like "the final nail in the coffin" and he decided to attempt suicide. He states he was not an impulsive attempt and that "I was thinking logically". He remains unsure about how he feels about being alive." Today he reports adjusting well to the inpatient psychiatric setting. We again explore events and driving factors leading to his suicide attempt. He is unsure that he was experiencing depression rather notes that well it is difficult to describe in [place], his [place] language is Slovenian, that he's always had the sense that "that something in this world is wrong for me". He expands on this as feeling as though he never transitioned from childhood to adulthood as he doesn't like the responsibilities of adulthood and has a hard time imagining a life that could be fulfilling that includes "I can't imagine working and coming home to see my family day after day". 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 He is feeling better about being alive, especially in reflecting about impact of his attempt on his family but continues to feel that the attempt was "based in my own impaired logical, it was thought out, it wasn't impulsive". Notes that he researched out much acetaminophen would be needed to be lethal "I even found the lethal dose". Physical Exam Psychiatric Orientation: alert, oriented to person, oriented to place, oriented to time and cooperative Apperance: appropriately dressed and appropriately groomed Eye Contact: good eye contact Motor Behavior: no abnormal motor movements Speech: normal rate/rhythm/volume of speech Affect: mood congruent with affect Mood: + dysphoric mood Thought Process: goal directed thought process Thought Content: reality based without delusions Suicidal Thoughts: denies suicidal thoughts, denies suicidal plan and denies suicidal intent Homicidal Thoughts: denies homicidal thoughts Hallucinations: no auditory hallucinations and no visual hallucinations Cognition: attention grossly intact and language grossly intact Estimated Intelligence: consistent with education level Insight: + fair insight Judgment: + fair judgement Vital Signs (Past 24 Hours) Last Vital Signs Temp 36.6 C 01/10/23 06:38 Pulse 91 H 01/10/23 06:39 Resp 16 01/10/23 06:38 BP 110/69 01/10/23 06:39 Pulse Ox 100 01/08/23 06:00 O2 Del Method Room Air 01/08/23 06:00 Principal Diagnosis Major Depressive Disorder, Single Episode, Severe, without Psychotic Features Psychiatric Data See daily stay summary. In short, safety was maintained and the patient was cooperative with care. Medication changes included initiation of bupropion XL 150 mg daily and they tolerated this well. A family session was [held] and safety plan was completed prior to discharge. Day of Discharge Assessment Today the patient voices readiness for discharge. They note improvement in mood and deny thoughts to harm self or others. Thoughts remain organized and they are improved from admission. There is no evidence of psychosis. They agree to take mediations as prescribed and keep follow-up appointments. They are stable for discharge to outpatient level of care. Transition of Care Transition Of Care Record: was reviewed with the patient Advance Directives Advance Directives Information Provided: Yes Advance Directives: No Mental Health Advance Directive: No Advance Directives on File: No Living Will: No Power of Fiberglass Boat Assembly Supervisor: No Advance Directives Reason:: Declines as Mental Health Visit. Suicide Risk Level Suicide Risk Level: Low (q15 min observation checks) Suicide Risk Level Comments: Denies any current suicidal thoughts Risk Factors Assessment Male: Yes : No Do You Have Access To A Gun?: No Health Problems: No Mental Health Diagnoses: Yes Substance Use Disorders: No Previous Attempt: Yes Family History of Suicide: No Previous Psychiatric Hospitalization: No Hopelessness: Yes Protective Factors Assessment Stable Relationships: Yes Supportive Family: Yes Total Time Total Time Spent: Greater Than 30 Minutes Total Time Includes: Examination of the patient, Discharge Planning, Medication Reconciliation and As well as (documentation) Discharge Data Lab Results 01/08/23 10:36 Sodium 139 Potassium 4.3 Chloride 104 Carbon Dioxide 30 Anion Gap 5 BUN 9 Creatinine 0.78 Est Cr Clr Drug Dosing 174.5 Est GFR ( Amer) 146.4 Est GFR (Non-Af Amer) 126.3 BUN/Creatinine Ratio 11.5 Glucose 124 H Calcium 9.6 Total Bilirubin 0.6 AST 13 ALT 19 Alkaline Phosphatase 63 Total Protein 7.3 Albumin 4.5 Globulin 2.8 Albumin/Globulin Ratio 1.6 Hospital Course (1) Major depressive disorder with current active episode: (2) Suicide attempt by multiple drug overdose: Plan 01/09/2023: Continue current medications and tx plan. 01/08/2023: Continue current medications and tx plan. Adding senna to help with constipation. 01/07/2023: Continue current medications and tx plan. 01/06/2023: Start Wellbutrin XL 150mg qAM tomorrow. Colace added for constipation. 01/05/2023: The patient was admitted to the [facility] ([facility] mental health unit) on q15 min checks (behavioral with suicide precautions) for safety. The patient will participate in group, recreational, and milieu therapies and will be offered additional individual and family sessions as clinically appropriate. -Provided with CAMS to further identify driving factors behind suicide attempt -He prefers to hold off on starting any psychiatric medication at this time, will continue to explore symptoms and re-evaluate potential utility for medication Mental Health & Subst Abuse Tx Psychiatrist Name of Psychiatrist: Gutierrez Joshua PA-C Psychiatrist's Date Of Appointment With Psychiatric Provider: 01/16/23 Time of Appointment with Psychiatrist: 8:45 AM Psychiatric Appointment Comment: [address], [place] [address] Therapist Name of Therapist: [facility] - Intake with Robb Therapist's Date of Therapist Appointment: 01/22/23 Time of Therapist Appointment: 9:30 AM Therapy Appointment Comment: [address], [address], [place] [address] Varitype Operator Name of Varitype Operator: [facility] Phone Number for Varitype Operator: [phone] Date of Appointment with Varitype Operator: 01/12/23 Time of Appointment with Varitype Operator: 10am Case Management Appointment Comment: Zoom link will be sent to [employer] email Post Discharge Appointments Primary Care Physician Name Of Family Doctor/PCP: [facility] Primary Care Provider Appointment Comment: Please follow up with PCP as needed. Contact Information Discharge Discharge [address]: [address] [place] [address], [place] [address] Discharge Plan Discharge Items Patient Disposition: Home - Self-Care Reason For Visit: MOOD DISORDER UNSPECIFIED Discharge Diagnosis: Major Depressive Disorder, Single Episode, Severe, without Psychotic Features Activity: Resume your previous activity Non-emergency contact: Primary Care Provider and Psychiatrist Call non-emergency contact if: you have any medication questions and your symptoms worsen Follow-up/Referrals: [facility] [Primary Care Provider] - Diet: Regular Addtl Attending Provider Instructions: SPECIAL CARE INSTRUCTIONS: 1. Follow through with your scheduled aftercare appointments. If unable to keep an appointment, please call to reschedule. 2. Take your medication only as prescribed. Medication should not be changed or stopped without the approval of your doctor. In the event of worsening symptoms or concerns about side effects, contact your doctor immediately. 3. Utilize new healthy coping skills, anger management skills, and stress management skills learned during your hospitalization. Journal feelings and process them with a support person. Identify stressors or situations that may result in relapse, deterioration or inappropriate behaviors and develop a plan to deal with those issues. 4. If your coping skills are ineffective and you are in crisis, contact your outpatient providers for direction. If unable to reach your providers, please call the [facility] CRISIS LINE AT , go to the [facility] walk-in center at [address], [address], [place], or go to the closest Emergency Room. 5. Avoid alcohol and un-prescribed drugs. 6. You have been provided with the Mental Health Advance Directives Pamphlet for your review. 7. Your condition is stable for discharge to outpatient level of care, but recovery is an ongoing process. Ifthoughts to harm yourself or others return, follow the safety plan developed during your stay. Planning for a safe return home includes securing weapons. Our treatment team recommends weaponsbe removed from the home until your outpatient provider reassesses your progress. In rare cases where the items themselvescannot be removed, guns and ammunitionshould be secured separatelyand keys stored by a reliable personoutside of the home. If you were admitted on an involuntary commitment, the police or other legal authorities may be involved in this process. AFTERCARE APPOINTMENTS: * Please call your insurance company prior to your scheduled appointment to confirm your aftercare providers are covered. Take your insurance information to your appointments. WHO TO CALL AND WHEN: Medical Emergencies: For questions or emergencies related to your hospital stay, please contact the Inpatient Behavioral Health Unit at [phone]. A rv service technician is on-call 30/03 for the Behavioral Health Unit for emergencies At any time you feel your situation is an emergency, you may also call 911 immediately. Pending Studies at Discharge: No Stand-Alone Forms: My [facility], Smoking Cessation Medications and DC Order Prescriptions: New sennosides-docusate sodium [Senokot-S] 8.6-50 mg Tablet 1 tab PO BID PRN (Reason: constipation) 30 Days Qty: 60 0RF bupropion HCl 150 mg Tablet Extended Release 24 Hr 150 mg PO QAM 30 Days Qty: 30 0RF No Action No Known Home Medications Discharge Orders: Discharge Order (Routine); Ordered 01/10/23 Ordered By: Alonzo Williamson Admission Data Admit Date/Time: 01/05/23 10:56 Attending Provider: Joseline Lan Admit Provider: Joseline Lan Primary Care Provider: [facility] Other Interventions: PSY Interdisciplinary Discharge Planning Last Done: 01/09/23 10:01 Coding Level of Care Code 24536 D/C day mgmt > 30 min Diagnoses Major depressive disorder with current active episode F32.9 Suicide attempt by multiple drug overdose T50.912A Encounter type: initial encounter Time Spent (min) 33
== END 2023-01-10 12:10 | disposition home or self-care (01) | DRG 885 ==
LOC: 3S 10:56